=== PATIENT | female | born 1955 | race Caucasian/White ===

== ENCOUNTER 2020-07-10 09:50 | Inpatient (IN) ==
[2020-07-10 11:11] LABS: Basophils # 0.1 K/mcL (0.0-0.2); Basophils % 0.5 %; Eosinophils # 0.2 K/mcL (0.0-0.6); Eosinophils % 1.7 %; Hematocrit 42.4 % (35.3-44.9); Hemoglobin 13.8 g/dL (11.5-15.4); Immature Granulocytes % 0.5 % (0-4); Lymphocytes # 3.3 K/mcL (0.6-4.6); Lymphocytes % 25.1 %; Mean Corpuscular HGB Conc 32.5 g/dL (31.6-35.5); Mean Corpuscular Hemoglobin 29.5 pg (28.0-33.3); Mean Corpuscular Volume 90.6 fL (83.0-100.0); Mean Platelet Volume 9.9 fL (9.4-12.4); Monocytes # 0.9 K/mcL (0.0-1.3); Neutrophils # 8.6 K/mcL (1.6-8.9); Platelet Count 369 K/mcL (140-400); Red Blood Count 4.68 M/mcL (3.82-4.97); Red Cell Distribution Width 15.1 % (11.5-14.5); Segmented Neutrophils % 65.2 %; White Blood Count 13.2 K/mcL (4.3-11.1)
[2020-07-10 11:18] LABS: VBG HCO3 25 mEq/L (21-27); VBG PCO2 40 mmHg (41-51); VBG PO2 91 mmHg (25-50)
[2020-07-10 11:20] LABS: INR 1.1; Prothrombin Time 12.4 Seconds (9.4-12.1)
[2020-07-10 11:22] LABS: Activated Partial Thrombo Time 33.9 Seconds (26.0-36.0)
[2020-07-10] MEDS ORDERED: Isovue-370 500 ML BOTTLE IVP ONE (11:30)
[2020-07-10 11:35] LABS: Alanine Aminotransferase 16 Units/L (7-52); Albumin/Globulin Ratio 1.4 (1.1-2.2); Alkaline Phosphatase 129 Units/L (34-104); Aspartate Amino Transferase 16 Units/L (13-39); BUN/Creatinine Ratio 25 (6-26); Bilirubin,Total 0.3 mg/dL (0.3-1.0); Blood Urea Nitrogen 27 mg/dL (8-23); Calcium 9.2 mg/dL (8.6-10.3); Carbon Dioxide 24 mEq/L (23-29); Chloride 106 mEq/L (98-107); Globulin 2.9 g/dL (2.4-3.5); Glucose 98 mg/dL (70-105); Magnesium 2.3 mg/dL (1.6-2.6); Osmolality,Calculated 293 (280-300); Potassium 3.9 mEq/L (3.5-5.1); Sodium 139 mEq/L (136-145); Total Protein 6.9 g/dL (6.4-8.9); Troponin I < 0.03 ng/mL (< 0.04); eGFR For African Americans > 60 (> 60); eGFR For Non-African Americans 51 (> 60)
[2020-07-10 14:22] LABS: Adenovirus Not Detected (Not Detect); Bordetella Pertussis Not Detected (Not Detect); Chlamydophila pneumoniae Not Detected (Not Detect); Coronavirus 229E Not Detected (Not Detect); Coronavirus HKU1 Not Detected (Not Detect); Coronavirus NL63 Not Detected (Not Detect); Coronavirus OC43 Not Detected (Not Detect); Human Metapneumovirus Not Detected (Not Detect); Human Rhinovirus/Enterovirus Not Detected (Not Detect); Influenza A Subtype 2009 H1 Not Detected (Not Detect); Influenza B Not Detected (Not Detect); Mycoplasma pneumoniae Not Detected (Not Detect); Parainfluenza Virus 1 Not Detected (Not Detect); Parainfluenza Virus 2 Not Detected (Not Detect); Parainfluenza Virus 3 Not Detected (Not Detect); Parainfluenza Virus 4 Not Detected (Not Detect); Respiratory Syncytial Virus Not Detected (Not Detect)
[2020-07-10] MEDS ORDERED: Naloxone 0.4 MG/ML INJ IVP PRN (15:10)
[2020-07-10] MEDS ORDERED: Ondansetron 4 MG/2 ML VIAL IVP PRN (15:10)
[2020-07-10] MEDS ORDERED: tiZANidine 4 MG TABLET PO PRN (15:10)
[2020-07-10] MEDS ORDERED: Albuterol 2.5 MG/3 ML NEBULIZER ONE (15:42)
[2020-07-10] MEDS: Albuterol 2.5 MG/3 ML NEBULIZER IH SCH ×2 (15:49→21:57)
[2020-07-10] MEDS: Azithromycin 500 MG in 0.9 % Sodium Chloride 250 ML IVPB SCH (16:27)
[2020-07-10] MEDS: cefTRIAXone 1,000 MG in 0.9 % Sodium Chloride Mini Bag 100 ML IVPB SCH (17:40)
[2020-07-10] MEDS ORDERED: Nystatin SUSP 5 ML UD.LIQ PO PRN (19:55)
[2020-07-10] MEDS: Budesonide/Formoterol 80/4.5 1 PUFF INH IH SCH (21:58)
[2020-07-10] MEDS: *HR* Metformin 500 MG TABLET PO SCH (23:33)
[2020-07-10] MEDS: Simethicone 80 MG TAB.CHEW PO SCH (23:33)
[2020-07-10] MEDS: Diclofenac Sodium (DR) 75 MG TABLET.DR PO SCH (23:33)
[2020-07-10] MEDS: Gabapentin 100 MG CAPSULE PO SCH (23:33)
[2020-07-11] MEDS: Albuterol 2.5 MG/3 ML NEBULIZER IH SCH ×4 (03:55→21:38)
[2020-07-11] MEDS: *HR* Enoxaparin 40 MG/0.4 ML SYRINGE SQ SCH (06:09)
[2020-07-11] MEDS: polyethylene glycoL 3350 17 GM POWD.PACK PO SCH (08:15)
[2020-07-11] MEDS: cefTRIAXone 1,000 MG in 0.9 % Sodium Chloride Mini Bag 100 ML IVPB SCH (08:16)
[2020-07-11] MEDS: Diclofenac Sodium (DR) 75 MG TABLET.DR PO SCH ×2 (08:18→21:56)
[2020-07-11] MEDS: Ascorbic Acid 500 MG TABLET PO SCH (08:18)
[2020-07-11] MEDS: Cyanocobalamin (B-12) 1,000 MCG TABLET PO SCH (08:18)
[2020-07-11] MEDS: Loratadine 10 MG TABLET PO SCH (08:18)
[2020-07-11] MEDS: Simethicone 80 MG TAB.CHEW PO SCH ×2 (08:18→21:52)
[2020-07-11] MEDS: Magnesium Oxide 400 MG TABLET PO SCH (08:18)
[2020-07-11] MEDS: Gabapentin 100 MG CAPSULE PO SCH ×3 (08:18→21:56)
[2020-07-11] MEDS: Cholecalciferol (D-3) 1,000 UNIT (25MCG) TABLET PO SCH (08:19)
[2020-07-11] MEDS: Fluticasone Propionate Nasal 50 MCG/SPRAY BOTTLE NS SCH (08:19)
[2020-07-11] MEDS: Vitamin E 200 UNIT (90MG) CAPSULE PO SCH (08:19)
[2020-07-11] MEDS ORDERED: NON-FORMULARY MEDICATION 1 EACH EACH (Fexofenadine Hcl [Allergy Relief] 180 MG) PO SCH (09:00)
[2020-07-11] MEDS ORDERED: NON-FORMULARY MEDICATION 1 EACH EACH (Turmeric Root Extract [Turmeric] 500 MG) PO SCH (09:00)
[2020-07-11] MEDS: Budesonide/Formoterol 80/4.5 1 PUFF INH IH SCH ×2 (09:16→21:40)
[2020-07-11] MEDS: Azithromycin 500 MG in 0.9 % Sodium Chloride 250 ML IVPB SCH (15:33)
[2020-07-11] MEDS: Acetaminophen 325 MG TABLET PO PRN ×2 (15:34→21:52)
[2020-07-11] MEDS: *HR* Metformin 500 MG TABLET PO SCH (17:17)
[2020-07-12] MEDS: Albuterol 2.5 MG/3 ML NEBULIZER IH SCH ×4 (03:59→21:33)
[2020-07-12] MEDS: *HR* Enoxaparin 40 MG/0.4 ML SYRINGE SQ SCH (05:17)
[2020-07-12 05:30] LABS: Basophils # 0.1 K/mcL (0.0-0.2); Basophils % 0.5 %; Eosinophils # 0.4 K/mcL (0.0-0.6); Eosinophils % 3.4 %; Hematocrit 40.4 % (35.3-44.9); Hemoglobin 12.9 g/dL (11.5-15.4); Immature Granulocytes % 0.4 % (0-4); Mean Corpuscular HGB Conc 31.9 g/dL (31.6-35.5); Mean Corpuscular Hemoglobin 29.7 pg (28.0-33.3); Mean Corpuscular Volume 92.9 fL (83.0-100.0); Mean Platelet Volume 9.8 fL (9.4-12.4); Monocytes # 0.6 K/mcL (0.0-1.3); Monocytes % 6.1 %; Neutrophils # 6.3 K/mcL (1.6-8.9); Platelet Count 307 K/mcL (140-400); Red Blood Count 4.35 M/mcL (3.82-4.97); Red Cell Distribution Width 14.8 % (11.5-14.5); Segmented Neutrophils % 60.6 %; White Blood Count 10.5 K/mcL (4.3-11.1)
[2020-07-12 05:41] LABS: Potassium 4.4 mEq/L (3.5-5.1)
[2020-07-12] MEDS: Budesonide/Formoterol 80/4.5 1 PUFF INH IH SCH ×2 (08:32→21:33)
[2020-07-12 08:34] LABS: Estimated Average Glucose 140 mg/dl
[2020-07-12] MEDS: cefTRIAXone 1,000 MG in 0.9 % Sodium Chloride Mini Bag 100 ML IVPB SCH (09:16)
[2020-07-12] MEDS: Simethicone 80 MG TAB.CHEW PO SCH ×2 (09:17→22:18)
[2020-07-12] MEDS: Cholecalciferol (D-3) 1,000 UNIT (25MCG) TABLET PO SCH (09:17)
[2020-07-12] MEDS: Vitamin E 200 UNIT (90MG) CAPSULE PO SCH (09:17)
[2020-07-12] MEDS: Ascorbic Acid 500 MG TABLET PO SCH (09:17)
[2020-07-12] MEDS: Loratadine 10 MG TABLET PO SCH (09:17)
[2020-07-12] MEDS: Magnesium Oxide 400 MG TABLET PO SCH (09:18)
[2020-07-12] MEDS: Cyanocobalamin (B-12) 1,000 MCG TABLET PO SCH (09:18)
[2020-07-12] MEDS: Diclofenac Sodium (DR) 75 MG TABLET.DR PO SCH ×2 (09:18→22:18)
[2020-07-12] MEDS: Gabapentin 100 MG CAPSULE PO SCH ×3 (09:18→22:18)
[2020-07-12] MEDS: polyethylene glycoL 3350 17 GM POWD.PACK PO SCH (09:24)
[2020-07-12] MEDS: Fluticasone Propionate Nasal 50 MCG/SPRAY BOTTLE NS SCH (09:42)
[2020-07-12] MEDS: Azithromycin 500 MG in 0.9 % Sodium Chloride 250 ML IVPB SCH (15:54)
[2020-07-12] MEDS ORDERED: Gabapentin 100 MG CAPSULE PO PRN (16:13)
[2020-07-12] MEDS: *HR* Metformin 500 MG TABLET PO SCH (17:33)
[2020-07-13] MEDS: *HR* Enoxaparin 40 MG/0.4 ML SYRINGE SQ SCH (05:42)
[2020-07-13] MEDS: Albuterol 2.5 MG/3 ML NEBULIZER IH SCH ×4 (05:42→22:03)
[2020-07-13] MEDS: Ascorbic Acid 500 MG TABLET PO SCH (09:44)
[2020-07-13] MEDS: Vitamin E 200 UNIT (90MG) CAPSULE PO SCH (09:44)
[2020-07-13] MEDS: Gabapentin 100 MG CAPSULE PO SCH ×2 (09:45→21:28)
[2020-07-13] MEDS: Simethicone 80 MG TAB.CHEW PO SCH ×2 (09:45→21:27)
[2020-07-13] MEDS: Magnesium Oxide 400 MG TABLET PO SCH (09:45)
[2020-07-13] MEDS: Loratadine 10 MG TABLET PO SCH (09:45)
[2020-07-13] MEDS: Cholecalciferol (D-3) 1,000 UNIT (25MCG) TABLET PO SCH (09:45)
[2020-07-13] MEDS: polyethylene glycoL 3350 17 GM POWD.PACK PO SCH (09:45)
[2020-07-13] MEDS: Cyanocobalamin (B-12) 1,000 MCG TABLET PO SCH (09:45)
[2020-07-13] MEDS: Fluticasone Propionate Nasal 50 MCG/SPRAY BOTTLE NS SCH (09:45)
[2020-07-13] MEDS: Diclofenac Sodium (DR) 75 MG TABLET.DR PO SCH ×2 (09:45→21:28)
[2020-07-13] MEDS: cefTRIAXone 1,000 MG in 0.9 % Sodium Chloride Mini Bag 100 ML IVPB SCH (09:46)
[2020-07-13] MEDS: Acetaminophen 325 MG TABLET PO PRN (09:52)
[2020-07-13] MEDS: Budesonide/Formoterol 80/4.5 1 PUFF INH IH SCH ×2 (10:28→22:03)
[2020-07-13] MEDS ORDERED: Azithromycin 250 MG TABLET PO SCH (16:00)
[2020-07-13] MEDS: *HR* Metformin 500 MG TABLET PO SCH (16:48)
[2020-07-14] MEDS: Albuterol 2.5 MG/3 ML NEBULIZER IH SCH ×2 (05:23→11:21)
[2020-07-14] MEDS: *HR* Enoxaparin 40 MG/0.4 ML SYRINGE SQ SCH (05:23)
[2020-07-14] MEDS: Cholecalciferol (D-3) 1,000 UNIT (25MCG) TABLET PO SCH (08:35)
[2020-07-14] MEDS: Vitamin E 200 UNIT (90MG) CAPSULE PO SCH (08:35)
[2020-07-14] MEDS: Diclofenac Sodium (DR) 75 MG TABLET.DR PO SCH (08:36)
[2020-07-14] MEDS: Ascorbic Acid 500 MG TABLET PO SCH (08:36)
[2020-07-14] MEDS: Simethicone 80 MG TAB.CHEW PO SCH (08:36)
[2020-07-14] MEDS: Loratadine 10 MG TABLET PO SCH (08:36)
[2020-07-14] MEDS: Gabapentin 100 MG CAPSULE PO SCH (08:36)
[2020-07-14] MEDS: Magnesium Oxide 400 MG TABLET PO SCH (08:36)
[2020-07-14] MEDS: Cyanocobalamin (B-12) 1,000 MCG TABLET PO SCH (08:36)
[2020-07-14] MEDS: polyethylene glycoL 3350 17 GM POWD.PACK PO SCH (08:36)
[2020-07-14] MEDS: cefTRIAXone 1,000 MG in 0.9 % Sodium Chloride Mini Bag 100 ML IVPB SCH (08:37)
[2020-07-14] MEDS: Fluticasone Propionate Nasal 50 MCG/SPRAY BOTTLE NS SCH (08:47)
[2020-07-14] MEDS: Budesonide/Formoterol 80/4.5 1 PUFF INH IH SCH (11:19)
[2020-07-14 11:42] VITALS: BP 108/72
== END 2020-07-14 17:27 | disposition home or self-care (01) | DRG 195 ==
LOC: EMEROOGRE 09:50 → INPGRE 09:50
PROVIDERS: ADMIT Family Medicine; ATTEND Family Medicine